=== PATIENT | male | born 1990 | race American Indian/Alaskan Native ===

== ENCOUNTER 2016-11-15 10:38 | Emergency (ER) | payer OTHER ==
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
[2016-11-15] MEDS ORDERED: Oxycodone/Acetaminophen 5/325 mg Tab PO STA (11:38)
[2016-11-15 12:00] VITALS: RESP 18; TEMP 98.9; O2SAT 98; BMI 25.8
--- NOTE | 2016-11-15 12:46 | RAD ---
PROCEDURE: Radiographs of the Left Shoulder HISTORY: Shoulder pain x 9 months COMPARISON: No prior. FINDINGS: BONES: Bone alignment and mineralization are normal. There is no acute displaced fracture or bone destruction. JOINTS: Normal. Glenohumeral and acromioclavicular joints preserved. SOFT TISSUES: Normal. OTHER FINDINGS: None. IMPRESSION: No acute fracture or dislocation.
--- NOTE | 2016-11-15 12:47 | RAD ---
PROCEDURE: Radiographs of the Right Shoulder HISTORY: shoulder pain x 9 months COMPARISON: No prior. FINDINGS: BONES: Bone alignment and mineralization are normal. There is no acute fracture or bone destruction. JOINTS: Normal. Glenohumeral and acromioclavicular joints preserved. SOFT TISSUES: Normal. OTHER FINDINGS: None. IMPRESSION: No acute fracture or dislocation.
[2016-11-15 13:59] VITALS: BP 115/71; PULSE 59
== END 2016-11-15 14:36 | disposition home or self-care (01) ==
LOC: ED 10:38
DX: M25.512 Pain in left shoulder (principal); M25.511 Pain in right shoulder; G89.29 Other chronic pain
CPT/HCPCS: 73030; 96372; 99285; J1885